=== PATIENT | male | born 1960 | race Caucasian/White ===

== ENCOUNTER → 2018-05-21 | Outpatient (CLI) | payer BC ==
[~2018-05-21] MED LIST: FLEC50TA25 PO; METO-95 PO
[2018-05-21 10:38] LABS: BASOPHILS # (AUTO) 0.07 x10^3/uL (0-0.1); BASOPHILS % (AUTO) 1 % (0-1); EOSINOPHILS # (AUTO) 0.35 x10^3/uL (0-0.4); EOSINOPHILS % (AUTO) 5 % (1-7); LYMPHOCYTES # (AUTO) 1.93 x10^3/uL (1-3.4); LYMPHOCYTES % (AUTO) 29 % (22-44); MD NO; MEAN CORPUSCULAR HGB CONC 35.2 g/dL (33.2-36.2); MEAN CORPUSCULAR VOLUME 85.3 fL (81-97); MEAN PLATELET VOLUME 7.6 fL (7.4-10.4); MONOCYTES # (AUTO) 0.55 x10^3/uL (0.2-0.8); MONOCYTES % (AUTO) 8 % (2-9); NEUTROPHILS # (AUTO) 3.74 x10^3/uL (1.8-6.8); NEUTROPHILS % (AUTO) 56 % (42-75); PLATELET COUNT 247 x10^3/uL (130-400); RED BLOOD COUNT 5.58 x10^6/uL (4.38-5.82); RED CELL DISTRIBUTION WIDTH 12.8 % (9.4-14.8)
[2018-05-21 10:40] LABS: MICROSCOPIC NOT IND
[2018-05-21 10:42] LABS: CULTURE INDICATED? NO
[2018-05-21 10:50] LABS: INTERNATIONAL NORMALIZED RATIO 1.02 (0.93-1.1); PROTHROMBIN TIME 10.8 Seconds (9.6-11.5)
[2018-05-21 10:58] LABS: ALANINE AMINOTRANSFERASE 36 U/L (12-78); ALBUMIN 4.2 g/dL (3.4-5.0); ANION GAP 6 mmol/L (5-15); CALCIUM 8.5 mg/dL (8.5-10.1); CHLORIDE 107 mmol/L (98-107); CREATININE 0.91 mg/dL (0.7-1.3)
[2018-05-21 11:04] LABS: ALKALINE PHOSPHATASE 67 U/L (45-117); BILIRUBIN,TOTAL 0.5 mg/dL (0.2-1.0); TOTAL PROTEIN 7.9 g/dL (6.4-8.2)
== END | disposition home or self-care (01) ==
LOC: STAR 09:21
PROVIDERS: ATTEND Orthopaedic Surgery Orthopaedic Surgery of the Spine
DX: Z01.818 Encounter for other preprocedural examination (principal); M51.26 Other intervertebral disc displacement, lumbar region
CPT/HCPCS: 36415; 71046; 80053; 81003; 85025; 85610; 85730; 93005

== ENCOUNTER → 2019-10-31 | Outpatient (CLI) | payer BC ==
[~2019-10-31] MED LIST changes: +ASPI81TA45 PO; +MAGN400T36 PO
[2019-10-31 16:16] LABS: BASOPHILS # (AUTO) 0.07 x10^3/uL (0-0.1); BASOPHILS % (AUTO) 1 % (0-1); EOSINOPHILS % (AUTO) 5 % (1-7); LYMPHOCYTES # (AUTO) 1.69 x10^3/uL (1-3.4); LYMPHOCYTES % (AUTO) 29 % (22-44); MD NO; MEAN CORPUSCULAR HEMOGLOBIN 29.9 pg (27.5-34.5); MEAN CORPUSCULAR HGB CONC 34.5 g/dL (33.2-36.2); MEAN CORPUSCULAR VOLUME 86.5 fL (81-97); MEAN PLATELET VOLUME 8.1 fL (7.4-10.4); MONOCYTES # (AUTO) 0.52 x10^3/uL (0.2-0.8); MONOCYTES % (AUTO) 9 % (2-9); NEUTROPHILS # (AUTO) 3.19 x10^3/uL (1.8-6.8); NEUTROPHILS % (AUTO) 55 % (42-75); PLATELET COUNT 238 x10^3/uL (130-400); RED BLOOD COUNT 5.13 x10^6/uL (4.38-5.82); RED CELL DISTRIBUTION WIDTH 13.8 % (9.4-14.8)
[2019-10-31 16:18] LABS: INTERNATIONAL NORMALIZED RATIO 1.03 (0.93-1.1); PROTHROMBIN TIME 10.9 Seconds (9.6-11.5)
[2019-10-31 16:21] LABS: ALKALINE PHOSPHATASE 56 U/L (45-117); BILIRUBIN,TOTAL 0.5 mg/dL (0.2-1.0)
[2019-10-31 16:33] LABS: MICROSCOPIC NOT IND
[2019-10-31 17:21] LABS: CULTURE INDICATED? NO
[2019-10-31 17:23] LABS: ALANINE AMINOTRANSFERASE 34 U/L (12-78); ALBUMIN 4.3 g/dL (3.4-5.0); ANION GAP 5 mmol/L (5-15); CALCIUM 8.9 mg/dL (8.5-10.1); CHLORIDE 109 mmol/L (98-107); CREATININE 0.92 mg/dL (0.7-1.3)
== END | disposition home or self-care (01) ==
LOC: STAR 14:55
PROVIDERS: ATTEND Orthopaedic Surgery Orthopaedic Surgery of the Spine
DX: Z01.818 Encounter for other preprocedural examination (principal); M51.16 Intervertebral disc disorders with radiculopathy, lumbar region
CPT/HCPCS: 36415; 71046; 80053; 81003; 85025; 85610; 85730; 93005

== ENCOUNTER 2019-11-06 06:56 | Inpatient (IN) | payer BC ==
[~2019-11-06] VITALS: Ht 182.9 cm; Wt 97.1 kg
[2019-11-06] MEDS ORDERED: LACTATED RINGERS 1,000 ML IV SCH (07:14)
[2019-11-06] MEDS ORDERED: LIDOCAINE-MPF 1%, 2ML INFIL ONE (07:30)
[2019-11-06] MEDS ORDERED: CHLORHEXIDINE 15 ML UDC MM ONE (07:30)
[2019-11-06] MEDS ORDERED: PROPOFOL 50 ML ONE ×2 (08:12→10:55)
[2019-11-06] MEDS ORDERED: MIDAZOLAM 1 MG/ML, 2ML ONE (08:12)
[2019-11-06] MEDS ORDERED: FENTANYL PF 250 MCG/5ML ONE (08:12)
[2019-11-06] MEDS ORDERED: EPINEPHRINE 1 MG/ML, 1ML ONE (08:51)
[2019-11-06] MEDS ORDERED: LIDOCAINE/PF 0.5% ,50ML ONE (08:51)
[2019-11-06] MEDS ORDERED: BUPIVACAINE/PF-EPI 0.25% 1:200K ONE (08:51)
[2019-11-06] MEDS ORDERED: VANCOMYCIN 1,000 MG ONE (08:51)
[2019-11-06] MEDS ORDERED: ROCURONIUM 10MG/ML,5ML ONE (10:00)
[2019-11-06] MEDS ORDERED: ONDANSETRON 2MG/ML, 2ML ONE (10:00)
[2019-11-06] MEDS ORDERED: METOPROLOL 1 MG/ML, 5ML IV PRN (10:00)
[2019-11-06] MEDS ORDERED: GLYCOPYRROLATE 0.2MG/1ML, 5ML ONE (10:00)
[2019-11-06] MEDS ORDERED: PROMETHAZINE 25 MG/ML, 1ML IV PRN (10:00)
[2019-11-06] MEDS ORDERED: OXYcodone 5 MG/5 ML ORAL.SOL UDC PO PRN (10:00)
[2019-11-06] MEDS ORDERED: HYDROmorphone 2 MG/ML, 1ML IVPush PRN (10:00)
[2019-11-06] MEDS ORDERED: CEFAZOLIN 1,000 MG ONE (10:00)
[2019-11-06] MEDS ORDERED: SUCCINYLCHOLINE 20 MG/ML, 10ML ONE (10:00)
[2019-11-06] MEDS ORDERED: ALBUTEROL SULFATE 2.5 MG/3 ML NPPB PRN (10:00)
[2019-11-06] MEDS ORDERED: MIDAZOLAM 1 MG/ML, 2ML IV PRN (10:00)
[2019-11-06] MEDS ORDERED: NEOSTIGMINE 1 MG/ML, 10ML ONE (10:00)
[2019-11-06] MEDS ORDERED: DEXAMETHASONE 4 MG/ML, 1ML ONE (10:00)
[2019-11-06] MEDS ORDERED: ACETAMINOPHEN 325 MG TABLET PO PRN (10:00)
[2019-11-06] MEDS ORDERED: MEPERIDINE/PF 25MG/ML,1ML IVPush PRN (10:00)
[2019-11-06] MEDS ORDERED: PROPOFOL 10 MG/ML, 20ML ONE (10:00)
[2019-11-06] MEDS ORDERED: hydrALAzine 20 MG/ML, 1ML IV PRN (10:00)
[2019-11-06] MEDS ORDERED: VANCOMYCIN 1,000 MG IM ONE (10:01)
[2019-11-06] MEDS ORDERED: LIDOCAINE-MPF 2% ,5ML ONE (11:04)
[2019-11-06] MEDS ORDERED: OXYcodone 5 MG/5 ML ORAL.SOL UDC ONE (13:13)
[2019-11-06] MEDS ORDERED: FENTANYL PF 100 MCG/2ML ONE (13:13)
[2019-11-06] MEDS: FENTANYL PF 100 MCG/2ML IV PRN ×2 (13:15→13:22)
[2019-11-06] MEDS ORDERED: METHOCARBAMOL 1,000 MG in DEXTROSE 5% 100 ML IV ONE (13:30)
[2019-11-06] MEDS ORDERED: HYDROmorphone 1 MG/ML, 1ML INJ ONE (13:31)
[2019-11-06] MEDS ORDERED: HYDROcodone/APAP 10/325 MG TABLET PO PRN (15:30)
[2019-11-06] MEDS ORDERED: PROMETHAZINE 25 MG/ML, 1ML IM PRN (15:30)
[2019-11-06] MEDS ORDERED: MAGNESIUM HYDROXIDE 8%, 30ML UDC PO PRN (15:30)
[2019-11-06] MEDS ORDERED: ONDANSETRON 2MG/ML, 2ML IV PRN (15:30)
[2019-11-06] MEDS ORDERED: HYDROcodone/APAP 5/325 TABLET PO PRN (15:30)
[2019-11-06] MEDS ORDERED: BISACODYL 10 MG SUPP PR PRN (15:30)
[2019-11-06] MEDS ORDERED: morphine SULFATE 10 MG/ML, 1ML IVPush PRN (16:00)
[2019-11-06] MEDS: D5%-0.9% NACL+KCL 20MEQ 1,000 ML IV SCH (16:31)
[2019-11-06] MEDS: CEFAZOLIN PMX 1GM/50ML 50 ML IVPB SCH (18:28)
[2019-11-06 19:07] VITALS: BP 95/58
[2019-11-06] MEDS ORDERED: FLECAINIDE 50MG TABLET PO SCH (21:00)
[2019-11-06] MEDS: SENNA/DOCUSATE TABLET PO SCH (21:06)
[2019-11-06] MEDS: METHOCARBAMOL 750 MG in DEXTROSE 5% 100 ML IV SCH (21:06)
[2019-11-07 00:29] VITALS: BP 102/62
[2019-11-07] MEDS: CEFAZOLIN PMX 1GM/50ML 50 ML IVPB SCH (01:54)
[2019-11-07 04:40] LABS: BASOPHILS # (AUTO) 0.02 x10^3/uL (0-0.1); BASOPHILS % (AUTO) 0 % (0-1); EOSINOPHILS # (AUTO) 0.08 x10^3/uL (0-0.4); EOSINOPHILS % (AUTO) 1 % (1-7); LYMPHOCYTES % (AUTO) 8 % (22-44); MD NO; MEAN CORPUSCULAR HEMOGLOBIN 29.7 pg (27.5-34.5); MEAN CORPUSCULAR HGB CONC 34.2 g/dL (33.2-36.2); MEAN CORPUSCULAR VOLUME 86.9 fL (81-97); MEAN PLATELET VOLUME 7.9 fL (7.4-10.4); MONOCYTES # (AUTO) 0.53 x10^3/uL (0.2-0.8); MONOCYTES % (AUTO) 5 % (2-9); NEUTROPHILS # (AUTO) 8.34 x10^3/uL (1.8-6.8); NEUTROPHILS % (AUTO) 85 % (42-75); PLATELET COUNT 218 x10^3/uL (130-400); RED BLOOD COUNT 4.09 x10^6/uL (4.38-5.82); RED CELL DISTRIBUTION WIDTH 13.8 % (9.4-14.8)
[2019-11-07 04:43] LABS: ANION GAP 6 mmol/L (5-15); CALCIUM 7.8 mg/dL (8.5-10.1); CHLORIDE 108 mmol/L (98-107); CREATININE 0.75 mg/dL (0.7-1.3)
[2019-11-07] MEDS: METHOCARBAMOL 750 MG in DEXTROSE 5% 100 ML IV SCH ×2 (05:26→13:36)
[2019-11-07] MEDS: D5%-0.9% NACL+KCL 20MEQ 1,000 ML IV SCH ×2 (05:27→15:00)
[2019-11-07] MEDS ORDERED: METOPROLOL SUCCINATE 100 MG TAB.ER.24H PO SCH (06:00)
[2019-11-07 07:32] VITALS: BP 104/64
[2019-11-07] MEDS: SENNA/DOCUSATE TABLET PO SCH (10:20)
[2019-11-07 13:12] VITALS: BP 104/63
[2019-11-07] MEDS ORDERED: OXYC5CAP2 PO (13:23)
[2019-11-07] MEDS ORDERED: CYCL-259 PO (13:24)
[2019-11-07] MEDS ORDERED: ACET-1600 PO (13:25)
[2019-11-08] MEDS ORDERED: METHOCARBAMOL 750 MG TABLET PO SCH (21:30)
== END 2019-11-07 15:40 | disposition home or self-care (01) | DRG 460 ==
LOC: ORIP 06:56 → 4NE 14:32
PROVIDERS: ADMIT Orthopaedic Surgery Orthopaedic Surgery of the Spine; ATTEND Orthopaedic Surgery Orthopaedic Surgery of the Spine
PROC: 0SG00K1 Fusion of Lumbar Vertebral Joint with Nonautologous Tissue Substitute, Posterior Approach, Posterior Column, Open Approach (ICD-10-PCS; 2019-11-06)
PROC: 3E0U0GB Introduction of Recombinant Bone Morphogenetic Protein into Joints, Open Approach (ICD-10-PCS; 2019-11-06)
PROC: 0SG0071 Fusion of Lumbar Vertebral Joint with Autologous Tissue Substitute, Posterior Approach, Posterior Column, Open Approach (ICD-10-PCS; principal; 2019-11-06 09:00)
DX: M51.26 Other intervertebral disc displacement, lumbar region (principal)
CPT/HCPCS: 36415; 72100; J3490; 80048; 85025; C1713; G0378; J0171; J0690; J1100; J1170; J2001; J2250; J2270; J2405; J2704; J2710; J3010; J3370; C1762; J0330; J2800; J3480; J7120; U0001